=== PATIENT | female | born 1960 | race Caucasian/White ===

== ENCOUNTER 2022-10-25 13:05 | Inpatient (IN) | payer OTHER ==
[2022-10-25] VITALS (17 sets, daily range): BP systolic 71–128; BP diastolic 27–88; TEMP 97.2; O2SAT 95–97
[~2022-10-25] VITALS: Ht 180.3 cm; Wt 97.5 kg
[2022-10-25] MEDS ORDERED: IV NS 0.9% 1,000 ML BAG IV ONE ×2 (13:30→14:30)
[2022-10-25 14:01] LABS: BASOPHILS % (AUTO) 0.1 % (0.0-2.0); EOSINOPHILS % (AUTO) 0.1 % (0.0-6.0); HEMATOCRIT 54 % (33-45); HEMOGLOBIN 17.2 g/dL (11.5-14.8); LYMPHOCYTES # (AUTO) 2.2 K/uL (0.8-4.8); LYMPHOCYTES % (AUTO) 8.3 % (20.0-44.0); MEAN CORPUSCULAR HEMOGLOBIN 31 PG (26.0-33.0); MEAN CORPUSCULAR HGB CONC 32 g/dl (31.0-36.0); MEAN CORPUSCULAR VOLUME 98 fL (82-100); MONOCYTES # (AUTO) 3.1 K/uL (0.1-1.30); MONOCYTES % (AUTO) 11.4 % (2.0-12.0); NEUTROPHILS # (AUTO) 21.6 K/uL (1.8-8.9); NEUTROPHILS % (AUTO) 80.1 % (43.0-81.0); PLATELET COUNT (AUTO) 599 K/uL (150-450); RED BLOOD CELL COUNT(AUTO) 5.54 MIL/uL (4.0-5.2); RED CELL DISTRIBUTION WIDTH 14.2 % (11.5-15.0); WHITE BLOOD COUNT (AUTO) 26.9 K/uL (4.3-11.0)
[2022-10-25 14:07] LABS: CALCIUM, SERUM 10.1 mg/dL (8.5-10.1); CARBON DIOXIDE 12 mmol/L (21-32); CHLORIDE 98 mmol/L (98-107); CREATININE 5.2 mg/dL (0.6-1.3); GLUCOSE 145 mg/dL (74-106); POTASSIUM 4.7 mmol/L (3.5-5.1); SODIUM SERUM 132 mmol/L (136-145); UREA NITROGEN, BLOOD 72 mg/dL (7-18)
[2022-10-25 14:16] LABS: LACTIC ACID 4.9 mmol/L (0.4-2.0)
[2022-10-25 14:22] LABS: ALANINE AMINOTRANSFERASE 18 U/L (12-78); ALBUMIN 2.2 g/dL (3.4-5.0); ALKALINE PHOSPHATASE 123 U/L (46-116); ASPARTATE AMINOTRANSFERASE 26 U/L (15-37); BILIRUBIN,DIRECT 0.1 mg/dL (0.0-0.2); BILIRUBIN,TOTAL 0.3 mg/dL (0.2-1.0); TOTAL PROTEIN, SERUM 6.6 g/dL (6.4-8.2)
[2022-10-25] MEDS ORDERED: PIPERACILLIN /TAZOBACTAM 3.375 G in IV D5W 50 ML IV ONE (14:30)
[2022-10-25] MEDS ORDERED: IV NS 0.9% 500 ML BAG IV ONE (14:30)
[2022-10-25 15:49] LABS: INR 1.25 (0.91-1.10); PARTIAL THROMBOPLASTIN TIME 26.5 SEC (24.3-34.3)
[2022-10-25] MEDS ORDERED: VALA500T PO (15:55)
[2022-10-25] MEDS ORDERED: LOSA25TA27 PO (15:55)
[2022-10-25] MEDS ORDERED: TRAM50TA2 PO (15:55)
[2022-10-25] MEDS ORDERED: TRAZ-257 PO (15:55)
[2022-10-25] MEDS ORDERED: ATEN50TA PO (15:55)
[2022-10-25] MEDS ORDERED: AMLO-212 PO (15:55)
[2022-10-25] MEDS ORDERED: NOREPINEPHRINE 8 MG in IV NS 0.9% 250 ML IV ONE (16:30)
[2022-10-25] MEDS ORDERED: NOREPINEPHRINE 8 MG in IV NS 0.9% 250 ML IV PRN (19:30)
[2022-10-25] MEDS ORDERED: Z GUARD REMEDY 4 OZ OINT TP PRN (19:30)
[2022-10-25] MEDS ORDERED: IV NS 0.9% 1,000 ML IV SCH (19:30)
[2022-10-25] MEDS ORDERED: ONDANSETRON HCL/PF 4 MG/2 ML VIAL IVP PRN (19:30)
[2022-10-25] MEDS ORDERED: MAGNESIUM HYDROXIDE 30 ML UDC PO PRN (19:30)
[2022-10-25] MEDS ORDERED: MAG HYDROX/AL HYDROX/SIMETH 30 ML UDC PO PRN (19:30)
[2022-10-25] MEDS ORDERED: ACETAMINOPHEN 325 MG TABLET PO PRN (19:30)
[2022-10-25] MEDS: NOREPINEPHRINE 8 MG in IV NS 0.9% 250 ML IV PRN ×2 (19:46→20:10)
[2022-10-25] MEDS: IV NS 0.9% 1,000 ML IV SCH (19:47)
[2022-10-25] MEDS ORDERED: NOREPINEPHRINE 8 MG in IV NS 0.9% 242 ML IV PRN (20:30)
[2022-10-25] MEDS: PIPERACILLIN /TAZOBACTAM 2.25 G in IV D5W 50 ML IV SCH (21:47)
[2022-10-25] MEDS: NOREPINEPHRINE 32 MG in IV NS 0.9% 218 ML IV PRN (22:31)
[2022-10-26] VITALS (77 sets, daily range): BP systolic 44–121; BP diastolic 22–107; TEMP 96.2–97.8; O2SAT 72–100
[2022-10-26] MEDS ORDERED: NOREPINEPHRINE 4 MG/4 ML AMPUL IV ONE (03:49)
[2022-10-26] MEDS: NOREPINEPHRINE 32 MG in IV NS 0.9% 218 ML IV PRN ×4 (04:03→20:30)
[2022-10-26 04:59] LABS: BASOPHILS # (AUTO) 0.1 K/uL (0.0-0.2); BASOPHILS % (AUTO) 0.3 % (0.0-2.0); EOSINOPHILS # (AUTO) 0.1 K/uL (0.0-0.7); EOSINOPHILS % (AUTO) 0.2 % (0.0-6.0); HEMATOCRIT 57 % (33-45); HEMOGLOBIN 17.7 g/dL (11.5-14.8); LYMPHOCYTES # (AUTO) 3.6 K/uL (0.8-4.8); LYMPHOCYTES % (AUTO) 7.4 % (20.0-44.0); MEAN CORPUSCULAR HEMOGLOBIN 31 PG (26.0-33.0); MEAN CORPUSCULAR HGB CONC 31 g/dl (31.0-36.0); MEAN CORPUSCULAR VOLUME 98 fL (82-100); MONOCYTES # (AUTO) 5.4 K/uL (0.1-1.30); MONOCYTES % (AUTO) 11.2 % (2.0-12.0); NEUTROPHILS # (AUTO) 39.1 K/uL (1.8-8.9); NEUTROPHILS % (AUTO) 80.9 % (43.0-81.0); PLATELET COUNT (AUTO) 467 K/uL (150-450); RED BLOOD CELL COUNT(AUTO) 5.82 MIL/uL (4.0-5.2); RED CELL DISTRIBUTION WIDTH 14.5 % (11.5-15.0)
[2022-10-26 05:09] LABS: WHITE BLOOD COUNT (AUTO) 48.3 K/uL (4.3-11.0)
[2022-10-26] MEDS ORDERED: PHENYLEPHRINE 10 MG/ML VIAL ONE (05:14)
[2022-10-26] MEDS: PIPERACILLIN /TAZOBACTAM 2.25 G in IV D5W 50 ML IV SCH ×3 (05:16→20:00)
[2022-10-26] MEDS: PHENYLEPHRINE 100 MG in IV NS 0.9% 240 ML IV PRN ×3 (05:20→20:00)
[2022-10-26 05:21] LABS: CALCIUM, SERUM 9.1 mg/dL (8.5-10.1); CREATININE 5.9 mg/dL (0.6-1.3); MAGNESIUM 2.2 mg/dL (1.8-2.4); POTASSIUM 4.7 mmol/L (3.5-5.1)
[2022-10-26 05:25] LABS: PHOSPHORUS 9.9 mg/dL (2.5-4.9)
[2022-10-26] MEDS: IV NS 0.9% 1,000 ML IV SCH (05:34)
[2022-10-26 07:33] LABS: OCCULT BLOOD STOOL POSITIVE (NEGATIVE)
[2022-10-26] MEDS ORDERED: IV NS 0.9% 1,000 ML IV ONE (09:00)
[2022-10-26 09:07] LABS: ABG BASE EXCESS -22.8 mmol/L; ABG OXYGEN SATURATION 80.6 % (92.0-98.5); ABG PCO2 22.3 mmHg (35.0-45.0); ABG PO2 51.5 mmHg (75.0-100.0); ABG TOTAL HEMOGLOBIN 17.8 G/dL (12.0-16.0); COHb 1.3 % (0.5-1.5); O2Hb 79.6 % (94.0-97.0); SITE, ABG Other; VENT MODE, BG RA 21%
[2022-10-26] MEDS ORDERED: SODIUM BICARBONATE SYR 50 MEQ/50 ML DISP.SYRIN IV ONE ×2 (09:30→23:30)
[2022-10-26] MEDS: Sodium Bicarbonate 150 MEQ in IV D5W 1,000 ML IV SCH ×3 (10:08→23:20)
[2022-10-26 10:33] LABS: APPEARANCE,URINE SLIGHTLY CLOUDY (CLEAR); BILIRUBIN,URINE 2+ (NEGATIVE); BLOOD, URINE TRACE-INTA Ery/uL (NEGATIVE); COLOR,URINE DARK YELLOW (YELLOW); KETONES,URINE TRACE mg/dL (NEGATIVE); LEUKOCYTE ESTERASE ,URINE NEGATIVE (NEGATIVE); NITRITE, URINE POSITIVE (NEGATIVE); PROTEIN,URINE 2+ mg/dl (NEGATIVE); UGLUCOSE TRACE mg/dL (NEGATIVE)
[2022-10-26 10:36] LABS: ADD URINE CULTURE YES; BACTERIA,URINE Moderate /HPF (None Seen); SQUAMOUS EPITHELIAL CELL,UR Rare /HPF (None Seen)
[2022-10-26] MEDS ORDERED: LIDOCAINE HCL/MPF 1% 30 ML VIAL IJ ONE (10:45)
[2022-10-26 10:47] LABS: ANISOCYTOSIS 1+; BAND % (MANUAL) 6 % (0.0-5.0); BASOPHILS % (MANUAL) 0 % (0.0-2.0); EOSINOPHILS % (MANUAL) 2 % (0-4); LYMPHOCYTES % (MANUAL) 8 % (16-48); MONOCYTES % (MANUAL) 9 % (0-11.0); NEUTROPHILS % (MANUAL) 75 (42-76); PLATELET ESTIMATE ADEQUATE
[2022-10-26] MEDS: METRONIDAZOLE 500MG/ NS 100ML 500 MG in PREMIX 1 EA IV SCH ×3 (12:14→21:00)
[2022-10-26] MEDS: VANCOMYCIN HCL 125 MG/2.5 ML ORAL.SUSP PO SCH ×2 (14:23→18:29)
[2022-10-26] MEDS ORDERED: ALBUMIN 25% 25 GM in PREMIX 1 EA IV PRN (14:30)
[2022-10-26 17:12] LABS: ABG BASE EXCESS -14.1 mmol/L; ABG OXYGEN SATURATION 97.4 % (92.0-98.5); ABG PCO2 19.1 mmHg (35.0-45.0); ABG PH 7.304 (7.350-7.450); ABG PO2 101.1 mmHg (75.0-100.0); ABG TOTAL HEMOGLOBIN 17.4 G/dL (12.0-16.0); AaDO2 162.1 mmHg; COHb 1.4 % (0.5-1.5); MetHb 0.3 % (0.0-1.5); O2Hb 95.7 % (94.0-97.0); SITE, ABG A-Line; VENT MODE, BG 5l nc
[2022-10-26] MEDS ORDERED: IV NS 0.9% 250 ML IV ONE (17:13)
[2022-10-26] MEDS ORDERED: IOHEXOL-350 100 ML VIAL IV ONE (17:13)
[2022-10-26 17:27] LABS: CALCIUM, SERUM 7.9 mg/dL (8.5-10.1); POTASSIUM 3.5 mmol/L (3.5-5.1)
[2022-10-26 17:33] LABS: INR 1.79 (0.91-1.10); PARTIAL THROMBOPLASTIN TIME 45.2 SEC (24.3-34.3); PROTHROMBIN TIME 18.2 SECS (9.2-11.1)
[2022-10-26 17:35] LABS: RED CELL DISTRIBUTION WIDTH 13.8 % (11.5-15.0)
[2022-10-26 17:42] LABS: BASOPHILS # (AUTO) 0.1 K/uL (0.0-0.2); BASOPHILS % (AUTO) 0.2 % (0.0-2.0); EOSINOPHILS # (AUTO) 0.2 K/uL (0.0-0.7); EOSINOPHILS % (AUTO) 0.5 % (0.0-6.0); HEMATOCRIT 45 % (33-45); HEMOGLOBIN 14.4 g/dL (11.5-14.8); LYMPHOCYTES # (AUTO) 3.5 K/uL (0.8-4.8); LYMPHOCYTES % (AUTO) 6.9 % (20.0-44.0); MEAN CORPUSCULAR HEMOGLOBIN 30 PG (26.0-33.0); MEAN CORPUSCULAR HGB CONC 32 g/dl (31.0-36.0); MEAN CORPUSCULAR VOLUME 95 fL (82-100); NEUTROPHILS # (AUTO) 41.3 K/uL (1.8-8.9); NEUTROPHILS % (AUTO) 82.4 % (43.0-81.0); PLATELET COUNT (AUTO) 255 K/uL (150-450); RED BLOOD CELL COUNT(AUTO) 4.78 MIL/uL (4.0-5.2); WHITE BLOOD COUNT (AUTO) 50.1 K/uL (4.3-11.0)
[2022-10-26 18:32] LABS: EOSINOPHILS % (MANUAL) 1 % (0-4); LYMPHOCYTES % (MANUAL) 15 % (16-48); MONOCYTES % (MANUAL) 16 % (0-11.0); NEUTROPHILS % (MANUAL) 68 (42-76)
[2022-10-26 18:33] LABS: ANISOCYTOSIS 1+; PLATELET ESTIMATE ADEQUATE
[2022-10-26] MEDS ORDERED: SODIUM BICARBONATE SYR 50 MEQ/50 ML DISP.SYRIN IV STA (21:17)
[2022-10-26 21:18] LABS: ABG OXYGEN SATURATION 84.2 % (92.0-98.5); ABG PH 6.894 (7.350-7.450); ABG PO2 72.4 mmHg (75.0-100.0); ABG TOTAL HEMOGLOBIN 18.4 G/dL (12.0-16.0); AaDO2 106.3 mmHg; MetHb 0.3 % (0.0-1.5); O2Hb 83.1 % (94.0-97.0); SITE, ABG A-Line
[2022-10-26] MEDS ORDERED: VASOPRESSIN INJ 40 UNIT in IV NS 0.9% 38 ML IV PRN (21:30)
[2022-10-26] MEDS ORDERED: VASOPRESSIN INJ 20 UNIT/ML VIAL ONE (21:52)
[2022-10-26] MEDS ORDERED: PROPOFOL 100 ML IV PRN (22:00)
[2022-10-26 22:30] LABS: ABG BASE EXCESS -23.9 mmol/L; ABG OXYGEN SATURATION 92.6 % (92.0-98.5); ABG PCO2 26.5 mmHg (35.0-45.0); ABG PH 6.996 (7.350-7.450); ABG PO2 89.4 mmHg (75.0-100.0); ABG TOTAL HEMOGLOBIN 17.9 G/dL (12.0-16.0); AaDO2 597.1 mmHg; COHb 0.9 % (0.5-1.5); O2Hb 91.8 % (94.0-97.0); PEEP,BG 0 cm H2O; SITE, ABG A-Line; VENT MODE, BG AC 20 450 100% +0; VT, ABG 450 mL
[2022-10-26] MEDS ORDERED: EPINEPHRINE (1:1000) 10 MG in IV NS 0.9% 240 ML IV PRN ×3 (23:00→23:45)
[2022-10-26] MEDS ORDERED: SODIUM BICARBONATE SYR 50 MEQ/50 ML DISP.SYRIN ONE (23:10)
[2022-10-27] VITALS: BP 79/47; TEMP 96.7
[2022-10-27 00:30] VITALS: BP 76/47
[2022-10-27] MEDS: VANCOMYCIN HCL 125 MG/2.5 ML ORAL.SUSP PO SCH (00:36)
[2022-10-27 01:00] VITALS: BP 59/38
[2022-10-27] MEDS: NOREPINEPHRINE 32 MG in IV NS 0.9% 218 ML IV PRN (01:26)
[2022-10-27 01:30] VITALS: BP 43/25
[2022-10-27 01:42] LABS: BASOPHILS # (AUTO) 0.3 K/uL (0.0-0.2); BASOPHILS % (AUTO) 0.5 % (0.0-2.0); EOSINOPHILS # (AUTO) 0.5 K/uL (0.0-0.7); EOSINOPHILS % (AUTO) 0.7 % (0.0-6.0); HEMATOCRIT 56 % (33-45); HEMOGLOBIN 17.3 g/dL (11.5-14.8); LYMPHOCYTES # (AUTO) 8.5 K/uL (0.8-4.8); LYMPHOCYTES % (AUTO) 11.4 % (20.0-44.0); MEAN CORPUSCULAR HEMOGLOBIN 31 PG (26.0-33.0); MEAN CORPUSCULAR HGB CONC 31 g/dl (31.0-36.0); MEAN CORPUSCULAR VOLUME 100 fL (82-100); MONOCYTES % (AUTO) 6.7 % (2.0-12.0); NEUTROPHILS # (AUTO) 60.8 K/uL (1.8-8.9); NEUTROPHILS % (AUTO) 80.7 % (43.0-81.0); PLATELET COUNT (AUTO) 237 K/uL (150-450); RED BLOOD CELL COUNT(AUTO) 5.62 MIL/uL (4.0-5.2); RED CELL DISTRIBUTION WIDTH 14.9 % (11.5-15.0)
[2022-10-27 01:44] LABS: WHITE BLOOD COUNT (AUTO) 75.2 K/uL (4.3-11.0)
[2022-10-27 01:45] VITALS: BP 35/24
[2022-10-27 01:58] LABS: BILIRUBIN,TOTAL 0.5 mg/dL (0.2-1.0); CALCIUM, SERUM 7.6 mg/dL (8.5-10.1); CREATININE 6.2 mg/dL (0.6-1.3); MAGNESIUM 3.1 mg/dL (1.8-2.4); TOTAL PROTEIN, SERUM 3.1 g/dL (6.4-8.2)
[2022-10-27 02:04] LABS: ALBUMIN 0.7 g/dL (3.4-5.0); PHOSPHORUS 16.2 mg/dL (2.5-4.9); POTASSIUM 7.3 mmol/L (3.5-5.1)
[2022-10-27] MEDS ORDERED: PROPOFOL 200 MG/20 ML VIAL IV ONE (02:57)
[2022-10-27 05:07] LABS: ANISOCYTOSIS 1+; BAND % (MANUAL) 5 % (0.0-5.0); BASOPHILS % (MANUAL) 0 % (0.0-2.0); EOSINOPHILS % (MANUAL) 2 % (0-4); LYMPHOCYTES % (MANUAL) 10 % (16-48); MONOCYTES % (MANUAL) 7 % (0-11.0); NEUTROPHILS % (MANUAL) 76 (42-76); PLATELET ESTIMATE ADEQUATE
[2022-10-28 06:07] LABS: PTH, INTACT 2049 pg/mL (15-65)
[2022-10-28 10:07] LABS: CREATININE KINASE (CK),MB 26.5 ng/mL (0.0-5.3)
[2022-10-28 14:07] LABS: *SPE A/G RATIO 0.7 (0.7-1.7); *SPE ALBUMIN 1.5 g/dL (2.9-4.4); *SPE ALPHA-1-GLOBULIN 0.4 g/dL (0.0-0.4); *SPE ALPHA-2-GLOBULIN 0.9 g/dL (0.4-1.0); *SPE BETA GLOBULIN 0.5 g/dL (0.7-1.3); *SPE GLOBULIN, TOTAL 2.1 g/dL (2.2-3.9); *SPE M-SPIKE 0.1 g/dL (Not Observed); *SPE PROTEIN TOTAL 3.6 g/dL (6.0-8.5); *SPEGAMMA GLOBULIN 0.3 g/dL (0.4-1.8)
== END 2022-10-27 02:58 | DRG 871 ==
LOC: ER 13:05 → ICU 18:22
PROVIDERS: ADMIT Internal Medicine; ATTEND Student in an Organized Health Care Education/Training Program
PROC: 5A1D70Z Performance of Urinary Filtration, Intermittent, Less than 6 Hours Per Day (ICD-10-PCS; 2022-10-26)
PROC: 02HV33Z Insertion of Infusion Device into Superior Vena Cava, Percutaneous Approach (ICD-10-PCS; 2022-10-26)
PROC: B548ZZA Ultrasonography of Superior Vena Cava, Guidance (ICD-10-PCS; 2022-10-26)
PROC: 03H633Z Insertion of Infusion Device into Left Axillary Artery, Percutaneous Approach (ICD-10-PCS; 2022-10-26)
PROC: 05HM33Z Insertion of Infusion Device into Right Internal Jugular Vein, Percutaneous Approach (ICD-10-PCS; 2022-10-26)
PROC: B543ZZA Ultrasonography of Right Jugular Veins, Guidance (ICD-10-PCS; 2022-10-26)
PROC: 5A1935Z Respiratory Ventilation, Less than 24 Consecutive Hours (ICD-10-PCS; principal; 2022-10-27)
PROC: 0BH17EZ Insertion of Endotracheal Airway into Trachea, Via Natural or Artificial Opening (ICD-10-PCS; 2022-10-27)
DX: A41.9 Sepsis, unspecified organism (principal); G92.8 Other toxic encephalopathy; J96.01 Acute respiratory failure with hypoxia; R65.21 Severe sepsis with septic shock; N17.0 Acute kidney failure with tubular necrosis; E44.0 Moderate protein-calorie malnutrition; E87.1 Hypo-osmolality and hyponatremia; N18.4 Chronic kidney disease, stage 4 (severe); E87.20 Acidosis, unspecified; I12.9 Hypertensive chronic kidney disease with stage 1 through stage 4 chronic kidney disease, or unspecified chronic kidney disease; Z66 Do not resuscitate; G47.9 Sleep disorder, unspecified; Z79.899 Other long term (current) drug therapy; Z98.84 Bariatric surgery status; Z90.49 Acquired absence of other specified parts of digestive tract; Z99.2 Dependence on renal dialysis; Z88.5 Allergy status to narcotic agent; E66.01 Morbid (severe) obesity due to excess calories; E88.09 Other disorders of plasma-protein metabolism, not elsewhere classified; E86.1 Hypovolemia; Z68.30 Body mass index [BMI] 30.0-30.9, adult; K52.9 Noninfective gastroenteritis and colitis, unspecified; M89.8X9 Other specified disorders of bone, unspecified site; E83.39 Other disorders of phosphorus metabolism; D75.1 Secondary polycythemia; E86.9 Volume depletion, unspecified
CPT/HCPCS: 36415; 36600; 70450-TC; 70496-TC; 70498-TC; 71045-TC; 80048-TC; 80053-TC; 80076-TC; 81001; 82272-TC; 82550-TC; 82553; 82803-TC; 82962-TC; 83605-TC; 83735-TC; 83970; 84100-TC; 84155; 84165; 84484-TC; 85025-TC; 85730-TC; 86850-TC; 87040-TC; 87086-TC; 90935-TC; 94002-TC; 94003-TC; A4216; A4223; G0378; J0171; J2370; J2543; J2704; J3490; J7030; J7040; J7050; J7060; J7070; P9047; Q9967